=== PATIENT | female | born 1990 | race Caucasian/White ===

== ENCOUNTER 2017-06-17 12:32 | Emergency (ER) | payer OTHER ==
[~2017-06-17] VITALS: Ht 172.7 cm; Wt 81.2 kg
[2017-06-17 13:07] VITALS: BP 130/73
[2017-06-17] MEDS ORDERED: KEFLEX500 MG PO (13:51)
[2017-06-17] MEDS ORDERED: BACTRIM,SEPT1 TABLET PO (13:51)
== END 2017-06-17 14:14 | disposition home or self-care (01) ==
LOC: EME 12:32
DX: L03.114 Cellulitis of left upper limb (principal); J45.909 Unspecified asthma, uncomplicated; F17.200 Nicotine dependence, unspecified, uncomplicated; Z87.898 Personal history of other specified conditions; Z86.14 Personal history of Methicillin resistant Staphylococcus aureus infection; Z86.711 Personal history of pulmonary embolism
CPT/HCPCS: 99281; 99283